=== PATIENT | female | born 1985 | race Hispanic/Latino ===

== ENCOUNTER 2017-06-22 19:19 | Emergency (ER) | payer BC, MEDICAID ==
[2017-06-22] MEDS ORDERED: TYLENOL PO ONE (19:54)
[2017-06-22 20:29] LABS: Basophils % (Auto) 1.8 % (0.0-1.8); Eosinophils % (Auto) 4.2 % (0.0-4.3); Hematocrit 32.9 % (30.3-42.9); Hemoglobin 10.1 gm/dl (10.1-14.3); Mean Corpuscular HGB Conc 31 % (30-34); Mean Corpuscular Volume 76 fl (79-97); Platelet Count 324 K/mm3 (140-440); Red Blood Count 4.35 M/mm3 (3.65-5.03); Red Cell Distribution Width 15.9 % (13.2-15.2); White Blood Count 7.7 K/mm3 (4.5-11.0)
[2017-06-22 20:31] LABS: Mean Corpuscular Hemoglobin 23 pg (28-32)
[2017-06-22 21:42] LABS: Bilirubin,Urine NEG (Negative); Blood,Urine LG (Negative); Ketones,Urine NEG (Negative); Leukocyte Esterase,Urine NEG (Negative); Mucus,Urine FEW /HPF; Nitrite,Urine NEG (Negative); Urobilinogen,Urine < 2.0 mg/dL (<2.0)
[2017-06-22 21:43] LABS: RBC,Urine > 182.0 /HPF (0.0-6.0)
[2017-06-23] MEDS ORDERED: NORCO 5/325 PO ONE (00:57)
[2017-06-23] MEDS ORDERED: TORADOL IM ONE (00:58)
[2017-06-23 01:05] VITALS: BP 145/87
--- NOTE | 2017-06-23 01:28 | Emergency Department Report ---
ED Female HPI - General Chief complaint: Vaginal Bleeding Stated complaint: VAG BLEED, AB PAIN, NAUSEA Time Seen by Provider: 06/23/17 00:49 Source: patient Mode of arrival: Ambulatory Limitations: No Limitations - History of Present Illness Initial comments: 31-year-old female with past medical history of kidney stones, , and previous bladder and kidney surgery presents as complaining of heavy vaginal bleeding today. Patient states her previous menses started on June 05 and last about 3 days. She states her menstrual cycles typically regular and occurs at the end of the month. Today patient complained of crampy suprapubic pain that is intermittent and moderate in intensity. Pain is worse with palpation. She has used 12 pads today. No complaints of nausea, vomiting, shortness of breath or near syncope. She called her [facility] Dr. Rodney Stearns was advised to come to the ED for evaluation. - Related Data Previous Rx's Medication Instructions Recorded Last Taken Type Clotrimazole 1% [Lotrimin 1%] 1 applic TP BID #1 tube 05/24/14 Unknown Rx Ondansetron [Zofran Odt] 4 mg PO TID #14 tab.rapdis 05/24/14 Unknown Rx HYDROcodone/ACETAMINOPHEN [Vicodin 1 tab PO Q6HR PRN #20 tablet 11/27/14 Unknown Rx HP 10-300 mg] Ondansetron [Zofran Odt] 4 mg PO Q6H PRN #20 tab.rapdis 11/27/14 Unknown Rx Sulfamethoxazole/Trimethoprim 1 each PO BID #14 tablet 11/27/14 Unknown Rx [Bactrim Ds] HYDROcodone/APAP 5-325 [[place] 1 each PO Q6HR PRN #20 tablet 06/23/17 Unknown Rx 5-325 mg TAB] Ibuprofen [Motrin] 800 mg PO Q8HR PRN #30 tablet 06/23/17 Unknown Rx medroxyPROGESTERone ACETATE 10 mg PO QDAY #5 tablet 06/23/17 Unknown Rx [Provera] Allergies Allergy/AdvReac Type Severity Reaction Status Date / Time amoxicillin [Amoxicillin] Allergy Vomiting Verified 05/24/14 12:00 ED Review of Systems ROS: Stated complaint: VAG BLEED, AB PAIN, NAUSEA Other details as noted in HPI Comment: All other systems reviewed and negative Other: Constitutional: No fevers chills Eyes: No eye pain visual changes ENT: No ear pain or throat pain Neck: Denies pain Respiratory: Denies cough wheezing shortness of breath Cardiovascular: Denies chest pain, palpitations, syncope GI: Denies a nausea, vomiting, diarrhea : Denies dysuria Musculoskeletal: Denies back pain Skin: Denies rash, lesions, erythema Neurologic: Denies headache, numbness, weakness Psychiatric: Denies suicidal ideation, hallucinations ED Past Medical Hx - Past Medical History Previous Medical History?: No Hx Kidney Stones: Yes - Surgical History Past Surgical History?: Yes Additional Surgical History: c section x1 kidney surgery bladder surgery - Social History Smoking Status: Never Smoker Substance Use Type: None - Medications Home Medications: Home Medications Medication Instructions Recorded Confirmed Last Taken Type Clotrimazole 1% [Lotrimin 1%] 1 applic TP BID #1 tube 05/24/14 Unknown Rx Ondansetron [Zofran Odt] 4 mg PO TID #14 tab.rapdis 05/24/14 Unknown Rx HYDROcodone/ACETAMINOPHEN [Vicodin 1 tab PO Q6HR PRN #20 tablet 11/27/14 Unknown Rx HP 10-300 mg] Ondansetron [Zofran Odt] 4 mg PO Q6H PRN #20 tab.rapdis 11/27/14 Unknown Rx Sulfamethoxazole/Trimethoprim 1 each PO BID #14 tablet 11/27/14 Unknown Rx [Bactrim Ds] HYDROcodone/APAP 5-325 [[place] 1 each PO Q6HR PRN #20 tablet 06/23/17 Unknown Rx 5-325 mg TAB] Ibuprofen [Motrin] 800 mg PO Q8HR PRN #30 tablet 06/23/17 Unknown Rx medroxyPROGESTERone ACETATE 10 mg PO QDAY #5 tablet 06/23/17 Unknown Rx [Provera] ED Physical Exam - General Limitations: No Limitations - Other Other exam information: General: No limitations, patient is alert in no acute distress Head exam: Atraumatic, normocephalic Eyes exam: Normal appearance ENT: Moist mucous membrane, normal oropharynx Neck exam: Normal inspection, full range of motion, no meningismus nontender Respiratory exam: Clear to auscultation bilateral, no wheezes, rales, crackles Cardiovascular: Normal rate and rhythm, normal heart sounds Abdomen: Soft, nondistended, suprapubic tendon, with normal bowel sounds, no rebound, or guarding Extremity: Full range of motion normal inspection no deformity Back: Normal Inspection, full range of motion, no tenderness Neurologic: Alert, oriented x3, cranial nerves intact, no motor or sensory deficit Psychiatric: normal affect, normal mood Skin: Warm, dry, intact ED Course Vital Signs 06/22/17 06/23/17 19:47 01:04 Temperature 98.1 F 98 F Pulse Rate 93 H 61 Respiratory 18 16 Rate Blood Pressure 189/111 Blood Pressure 145/87 [Left] O2 Sat by Pulse 99 100 Oximetry - Reevaluation(s) Reevaluation #1: 06/23/17 01:27 Toradol and [place] given for pain. Patient received Tylenol 1 g prior to my evaluation without relief. Repeat blood pressure improved without receiving any antihypertensive medication - Consultations Consultation #1: 06/23/17 02:[address] Stearns. Recommends Provera and outpatient follow-up ED Medical Decision Making - Lab Data Result diagrams: 06/22/17 20:00 Lab Results 06/22/17 06/22/17 06/22/17 Range/Units 20:00 20:00 20:00 WBC 7.7 (4.5-11.0) K/mm3 RBC 4.35 (3.65-5.03) M/mm3 Hgb 10.1 (10.1-14.3) gm/dl Hct 32.9 (30.3-42.9) % MCV 76 L (79-97) fl MCH 23 L (28-32) pg MCHC 31 (30-34) % RDW 15.9 H (13.2-15.2) % Plt Count 324 (140-440) K/mm3 Lymph % (Auto) 24.4 (13.4-35.0) % [place] % (Auto) 6.0 (0.0-7.3) % Eos % (Auto) 4.2 (0.0-4.3) % Baso % (Auto) 1.8 (0.0-1.8) % Lymph # 1.9 (1.2-5.4) K/mm3 [place] # 0.5 (0.0-0.8) K/mm3 Eos # 0.3 (0.0-0.4) K/mm3 Baso # 0.1 (0.0-0.1) K/mm3 Seg Neutrophils % 63.6 (40.0-70.0) % Seg Neutrophils # 4.9 (1.8-7.7) K/mm3 HCG, Quant < 2 (0-4) mIU/mL Urine Color (Yellow) Urine Turbidity (Clear) Urine pH (5.0-7.0) Ur Specific [place] (1.003-1.030) Urine Protein (Negative) mg/dL Urine Glucose (UA) (Negative) mg/dL Urine Ketones (Negative) mg/dL Urine Blood (Negative) Urine Nitrite (Negative) Urine Bilirubin (Negative) Urine Urobilinogen (<2.0) mg/dL Ur Leukocyte Esterase (Negative) Urine WBC (Auto) (0.0-6.0) /HPF Urine RBC (Auto) (0.0-6.0) /HPF U Epithel Cells (Auto) (0-13.0) /HPF Urine Mucus /HPF Blood Type O POSITIVE Antibody Screen Negative 06/22/17 Range/Units 21:00 WBC (4.5-11.0) K/mm3 RBC (3.65-5.03) M/mm3 Hgb (10.1-14.3) gm/dl Hct (30.3-42.9) % MCV (79-97) fl MCH (28-32) pg MCHC (30-34) % RDW (13.2-15.2) % Plt Count (140-440) K/mm3 Lymph % (Auto) (13.4-35.0) % [place] % (Auto) (0.0-7.3) % Eos % (Auto) (0.0-4.3) % Baso % (Auto) (0.0-1.8) % Lymph # (1.2-5.4) K/mm3 [place] # (0.0-0.8) K/mm3 Eos # (0.0-0.4) K/mm3 Baso # (0.0-0.1) K/mm3 Seg Neutrophils % (40.0-70.0) % Seg Neutrophils # (1.8-7.7) K/mm3 HCG, Quant (0-4) mIU/mL Urine Color Yellow (Yellow) Urine Turbidity Slightly-cloudy (Clear) Urine pH 5.0 (5.0-7.0) Ur Specific [place] 1.026 (1.003-1.030) Urine Protein 30 mg/dl (Negative) mg/dL Urine Glucose (UA) Neg (Negative) mg/dL Urine Ketones Neg (Negative) mg/dL Urine Blood Lg (Negative) Urine Nitrite Neg (Negative) Urine Bilirubin Neg (Negative) Urine Urobilinogen < 2.0 (<2.0) mg/dL Ur Leukocyte Esterase Neg (Negative) Urine WBC (Auto) 5.0 (0.0-6.0) /HPF Urine RBC (Auto) > 182.0 (0.0-6.0) /HPF U Epithel Cells (Auto) 2.0 (0-13.0) /HPF Urine Mucus Few /HPF Blood Type Antibody Screen - Radiology Data Radiology results: report reviewed Transvaginal/pelvic ultrasound: Normal size uterus. There is a fibroid in the anterior uterine myometrium measuring 2.1 cm. - Medical Decision Making Plan discharge patient home on pain medication, Provera, and outpatient follow- up with [facility]. No signs of anemia, hypotension, or at this time. - Differential Diagnosis , miscarriage, fibroids, DUB, anemia Critical Care Time: No Critical care attestation.: If time is entered above; I have spent that time in minutes in the direct care of this critically ill patient, excluding procedure time. ED Disposition Clinical Impression: Elevated blood pressure reading, Uterine fibroid, Menometrorrhagia Disposition: TO HOME OR SELFCARE Is pt being admited?: No Does the pt Need Aspirin: No Condition: Stable Instructions: Menorrhagia (ED), How to Take a Blood Pressure (ED), Uterine Fibroids (ED) Additional Instructions: Take the medication as prescribed. Return if symptoms worsen. Follow-up with your [facility] doctor. Prescriptions: HYDROcodone/APAP 5-325 [[place] 5-325 mg TAB] 1 each PO Q6HR PRN #20 tablet PRN Reason: Pain Ibuprofen [Motrin] 800 mg PO Q8HR PRN #30 tablet PRN Reason: Pain medroxyPROGESTERone ACETATE [Provera] 10 mg PO QDAY #5 tablet Referrals: RODNEY STEARNS MD [Staff Physician] - 3-5 Days RONALDO PINEDA MD [Staff Physician] - 3-5 Days (Primary care doctor) Time of Disposition: 02:42
--- NOTE | 2017-06-23 02:22 | Ultrasound Report ---
FINAL REPORT PROCEDURE: Pelvic ultrasound, transabdominal and transvaginal TECHNIQUE: Real-time transabdominal sonography in multiple planes of the pelvis was performed. The pelvic structures, especially the ovaries were not optimally visualized. Transvaginal sonography was then performed to better evaluate the structures and/or abnormalities described below with image documentation. CPT 47810 and 56901 HISTORY: vag bleeding COMPARISON: No prior studies are available for comparison. FINDINGS: UTERUS Size: 8.9 x 4.7 x 6.8 cm. Endometrial thickness: 9 mm. Orientation: anteverted. Cervix: Normal. Fibroids/masses: There is a 2.1 centimeter fibroid in the anterior uterine myometrium The ovaries are not visualized on this study. Pelvic fluid: None. Other: None. IMPRESSION: Normal sized uterus. There is a fibroid identified in the anterior uterine myometrium, this measures 2.1 centimeters. Neither ovary is identified on this study. No fluid in the lower pelvis.
--- NOTE | 2017-06-23 02:23 | Ultrasound Report ---
FINAL REPORT PROCEDURE: Pelvic ultrasound, transabdominal and transvaginal TECHNIQUE: Real-time transabdominal sonography in multiple planes of the pelvis was performed. The pelvic structures, especially the ovaries were not optimally visualized. Transvaginal sonography was then performed to better evaluate the structures and/or abnormalities described below with image documentation. CPT 56994 and 97769 HISTORY: vag bleeding COMPARISON: No prior studies are available for comparison. FINDINGS: UTERUS Size: 8.9 x 4.7 x 6.8 cm. Endometrial thickness: 9 mm. Orientation: anteverted. Cervix: Normal. Fibroids/masses: There is a 2.1 centimeter fibroid in the anterior uterine myometrium The ovaries are not visualized on this study. Pelvic fluid: None. Other: None. IMPRESSION: Normal sized uterus. There is a fibroid identified in the anterior uterine myometrium, this measures 2.1 centimeters. Neither ovary is identified on this study. No fluid in the lower pelvis.
== END 2017-06-23 03:00 | disposition home or self-care (01) ==
LOC: ED 19:19
DX: D25.9 Leiomyoma of uterus, unspecified (principal); N92.1 Excessive and frequent menstruation with irregular cycle; R03.0 Elevated blood-pressure reading, without diagnosis of hypertension; Z88.1 Allergy status to other antibiotic agents
CPT/HCPCS: 36415; 76830; 76856; 81001; 84702; 85025; 86850; 86900; 86901; 96372; 99284; J1885

== ENCOUNTER 2018-05-06 13:29 | Outpatient (CLI) | payer OTHER ==
--- NOTE | 2018-05-07 08:37 | Mammography Report ---
BILATERAL DIGITAL DIAGNOSTIC MAMMOGRAM with CAD and RIGHT BREAST ULTRASOUND: 05/06/18 13:45:00 CLINICAL: Right breast pain and lump. COMPARISON:None. FINDINGS: The breasts are mostly fatty with a few bilateral residual retroareolar fibroglandular densities. No mammographic finding at a right upper outer periareolar palpable marker. Several benign oil cysts in the upper right breast. The largest measures 2 cm with adjacent benign calcifications. In addition, a 7 mm slightly irregular circumscribed right upper nodule or lymph node. No architectural distortion or suspicious calcifications . The left breast is negative. Ultrasound of the right breast (including all four quadrants and the retroareolar area) was performed and demonstrated no mass, cyst or shadowing at the upper outer periareolar palpable marker. An oval predominately hyperechoic superficial subareolar mass at 12 o'clock measures 1.2 x 0.5 x 1.2 cm. An anechoic slightly irregular cyst at 12 o'clock 10 cm from the nipple measures 1.5 x 1.0 x 1.0 cm. This appears to correlate with the largest oil cyst on the mammogram. A complex cyst versus solid mass at 10 o'clock 9 cm from nipple measures 5 x 5 x 5 mm. A benign lymph node at 10 o'clock 11 cm from the nipple measures 7 x 6 x 5 mm. It appears to correlate with the circumscribed 7 mm nodule on the mammogram. A superficial benign cyst at 10 o'clock 11 cm from the nipple measures 1.0 x 0.6 x 0.5 cm. A slightly irregular cyst at 11 o'clock 10 cm from the nipple measures 5 x 6 x 6 mm. Ultrasound of the right axilla demonstrates no lymphadenopathy. IMPRESSION: Evidence of benign fat necrosis in the right breast and multiple probably benign findings. No mammographic or ultrasound findings correlate with a right upper outer periareolar lump felt by the patient. BI-RADS CATEGORY: 3 - - Probably Benign RECOMMENDATION: Six month followup right mammogram and right breast ultrasound to reevaluate the complex cysts versus solid nodules and to reevaluate the area of the palpable lump. ACR BI-RADS MAMMOGRAPHIC CODES: 0 = Needs additional imaging evaluation; 1 = Negative; 2 = Benign; 3 = Probably benign; 4 = Suspicious; 5 = Malignant; 6 = Known biopsy-proven malignancy COMMENT: 1. Dense breast tissue, i.e., adenosis, fibrocystic changes, etc., may obscure an underlying neoplasm. 2. Approximately 10% of cancers are not detected with mammography. 3. A negative mammography report should not delay biopsy if a clinically suspicious mass is present. COMMENT: Patient follow-up letters are generated by our [employer] application.
== END 2018-05-06 13:30 | disposition home or self-care (01) ==
LOC: MAMMO 13:29
PROVIDERS: ATTEND Advanced Practice Midwife
DX: N64.1 Fat necrosis of breast (principal); Z88.1 Allergy status to other antibiotic agents
CPT/HCPCS: 77066

== ENCOUNTER 2018-05-07 16:48 | Emergency (ER) | payer OTHER ==
[2018-05-07 17:44] LABS: Amorphous Crystals,Urine 1+; Bilirubin,Urine NEG (Negative); Blood,Urine NEG (Negative); Color,Urine Yellow (Yellow); Mucus,Urine 1+ /HPF; Urobilinogen,Urine < 2.0 mg/dL (<2.0)
[2018-05-07 17:45] LABS: HCG Qualitative,Urine Negative (Negative)
[2018-05-07 18:08] LABS: Hematocrit 35.8 % (30.3-42.9); Hemoglobin 11.6 gm/dl (10.1-14.3); Mean Corpuscular HGB Conc 32 % (30-34); Mean Corpuscular Volume 77 fl (79-97); Platelet Count 267 K/mm3 (140-440); Red Blood Count 4.67 M/mm3 (3.65-5.03); Red Cell Distribution Width 14.9 % (13.2-15.2)
[2018-05-07 18:17] LABS: BUN/Creatinine Ratio 33; Blood Urea Nitrogen 13 mg/dL (7-17); Calcium 8.8 mg/dL (8.4-10.2); Hemolysis Index 1
[2018-05-07 18:20] LABS: Mean Corpuscular Hemoglobin 25 pg (28-32)
[2018-05-07 18:29] LABS: INR 0.91 (0.87-1.13)
[2018-05-07 18:30] LABS: Partial Thromboplastin Time 29.2 Sec. (24.2-36.6)
[2018-05-07 19:01] LABS: Total Cells Counted 100
[2018-05-07 19:02] LABS: Anisocytosis 1+; Hypochromasia 1+; Platelet Estimate Consistent w Auto; Poikilocytosis 1+
--- NOTE | 2018-05-07 19:02 | Ultrasound Report ---
FINAL REPORT PROCEDURE: US PELVIC COMPLETE TECHNIQUE: Real-time transabdominal sonography in multiple planes of pelvis was performed with image documentation. This examination was performed without Doppler. Vascular abnormalities, including ovarian torsion, will not be detectable without Doppler evaluation. CPT 99269 HISTORY: pelvic pain w/iud COMPARISON: Prior study 05/23/2017 FINDINGS: Report for this exam was generating using images from both the transabdominal and the transvaginal pelvic ultrasound both of which were performed today. Today's study is limited due to the patient's body habitus and a large amount of bowel gas. Uterus appears to be visualized in the midline. A uterine fibroid described on the prior study performed 06/23/2017 is not clearly visualized. No uterine masses are identified. On today's study the uterus measures 8.4 x 4.0 x 6.0 centimeter. Echogenic area partially visualized in the endometrial canal suggesting the patient has IUD. This is suboptimally visualized. The endometrial stripe does not appear to be significantly widened. No free fluid is seen in the cul-de-sac. Despite imaging with transabdominal and transvaginal scanning neither ovary was visualized. No abnormal adnexal masses are identified. IMPRESSION: Limited exam as described secondary to the patient's body habitus and a large amount of bowel gas. Subtle increased echogenicity seen in the endometrial canal likely representing the patient's IUD. This is suboptimally visualized. Uterus is otherwise unremarkable. A uterine fibroid described on the prior study was not clearly identified today. Neither ovary is visualized today. No abnormal adnexal masses are seen.
--- NOTE | 2018-05-07 19:04 | Ultrasound Report ---
FINAL REPORT PROCEDURE: US TRANSVAGINAL TECHNIQUE: Real-time transvaginal sonography in multiple planes of the pelvis was performed with image documentation. This examination was performed without Doppler. Vascular abnormalities, including ovarian torsion, will not be detectable without Doppler evaluation. CPT 84018 HISTORY: pelvic pain w/iud COMPARISON: Prior study 06/23/2017 and transabdominal pelvic ultrasound performed earlier today. FINDINGS: Report for this exam was generating using images from both the transabdominal and the transvaginal pelvic ultrasound both of which were performed today. Today's study is limited due to the patient's body habitus and a large amount of bowel gas. Uterus appears to be visualized in the midline. A uterine fibroid described on the prior study performed 06/23/2017 is not clearly visualized. No uterine masses are identified. On today's study the uterus measures 8.4 x 4.0 x 6.0 centimeter. Echogenic area partially visualized in the endometrial canal suggesting the patient has IUD. This is suboptimally visualized. The endometrial stripe does not appear to be significantly widened. No free fluid is seen in the cul-de-sac. Despite imaging with transabdominal and transvaginal scanning neither ovary was visualized. No abnormal adnexal masses are identified. IMPRESSION: Limited exam as described secondary to the patient's body habitus and a large amount of bowel gas. Subtle increased echogenicity seen in the endometrial canal likely representing the patient's IUD. This is suboptimally visualized. Uterus is otherwise unremarkable. A uterine fibroid described on the prior study was not clearly identified today. Neither ovary is visualized today. No abnormal adnexal masses are seen. .
--- NOTE | 2018-05-07 21:43 | Emergency Department Report ---
ED General Adult HPI - General Chief complaint: Abdominal Pain Stated complaint: ABD PAIN Time Seen by Provider: 05/07/18 21:42 Source: patient, RN notes reviewed, old records reviewed Mode of arrival: Ambulatory Limitations: No Limitations - History of Present Illness Initial comments: This is a 32-year-old female who is unknown to this provider. Her executive director of marketing is nurse recycle worker Edilia Morales, at [address] [place] [address] The patient presents to the ER with acute on chronic suprapubic abdominal pain, vaginal bleeding and discomfort. The symptoms have been going on since August. The pain is sharp and crampy. Patient admits to nausea with vomiting 2, denies irritative sinus obstructive urinary symptoms. Admits to cramping and contraction-like pain, which increases with palpation, decreases with rest, decreases with IV pain medication, and does not radiate anywhere. Patient reports her nurse recycle worker is employing the IUD that the patient has as a strategy to help with pain control and symptom control. -: Gradual, week(s), month(s) Location: abdomen, genitals Radiation: non-radiation Severity scale (0 -10): 7 Quality: aching Consistency: intermittent Improves with: medication, rest Worsens with: movement Associated Symptoms: malaise, nausea/vomiting. denies: confusion, chest pain, cough, diaphoresis, fever/chills, headaches, loss of appetite, rash, seizure, shortness of breath, syncope, weakness - Related Data Previous Rx's Medication Instructions Recorded Last Taken Type Clotrimazole 1% [Lotrimin 1%] 1 applic TP BID #1 tube 05/24/14 Unknown Rx Ondansetron [Zofran Odt] 4 mg PO TID #14 tab.rapdis 05/24/14 Unknown Rx HYDROcodone/ACETAMINOPHEN [Vicodin 1 tab PO Q6HR PRN #20 tablet 11/27/14 Unknown Rx HP 10-300 mg] Ondansetron [Zofran Odt] 4 mg PO Q6H PRN #20 tab.rapdis 11/27/14 Unknown Rx Sulfamethoxazole/Trimethoprim 1 each PO BID #14 tablet 11/27/14 Unknown Rx [Bactrim Ds] HYDROcodone/APAP 5-325 [[place] 1 each PO Q6HR PRN #20 tablet 06/23/17 Unknown Rx 5-325 mg TAB] Ibuprofen [Motrin] 800 mg PO Q8HR PRN #30 tablet 06/23/17 Unknown Rx medroxyPROGESTERone ACETATE 10 mg PO QDAY #5 tablet 06/23/17 Unknown Rx [Provera] Ibuprofen [Motrin] 600 mg PO Q8H PRN #30 tablet 05/07/18 Unknown Rx Ketorolac [Toradol] 10 mg PO Q6H PRN #20 tablet 05/07/18 Unknown Rx Ondansetron [Zofran Odt] 4 mg PO Q8HR PRN #20 tab.rapdis 05/08/18 Unknown Rx Allergies Allergy/AdvReac Type Severity Reaction Status Date / Time amoxicillin [Amoxicillin] Allergy Vomiting Verified 05/24/14 12:00 ED Review of Systems ROS: Stated complaint: ABD PAIN Other details as noted in HPI Constitutional: malaise. denies: fever Eyes: denies: eye discharge ENT: denies: epistaxis Respiratory: denies: cough Cardiovascular: denies: chest pain Gastrointestinal: abdominal pain, nausea, vomiting Genitourinary: abnormal menses. denies: dysuria Musculoskeletal: denies: back pain Skin: denies: lesions Neurological: weakness Psychiatric: anxiety ED Past Medical Hx - Past Medical History Hx Hypertension: Yes Hx Kidney Stones: Yes - Surgical History Additional Surgical History: c section x1 kidney surgery bladder surgery - Social History Smoking Status: Current Every Day Smoker Substance Use Type: None - Medications Home Medications: Home Medications Medication Instructions Recorded Confirmed Last Taken Type Clotrimazole 1% [Lotrimin 1%] 1 applic TP BID #1 tube 05/24/14 Unknown Rx Ondansetron [Zofran Odt] 4 mg PO TID #14 tab.rapdis 05/24/14 Unknown Rx HYDROcodone/ACETAMINOPHEN [Vicodin 1 tab PO Q6HR PRN #20 tablet 11/27/14 Unknown Rx HP 10-300 mg] Ondansetron [Zofran Odt] 4 mg PO Q6H PRN #20 tab.rapdis 11/27/14 Unknown Rx Sulfamethoxazole/Trimethoprim 1 each PO BID #14 tablet 11/27/14 Unknown Rx [Bactrim Ds] HYDROcodone/APAP 5-325 [[place] 1 each PO Q6HR PRN #20 tablet 06/23/17 Unknown Rx 5-325 mg TAB] Ibuprofen [Motrin] 800 mg PO Q8HR PRN #30 tablet 06/23/17 Unknown Rx medroxyPROGESTERone ACETATE 10 mg PO QDAY #5 tablet 06/23/17 Unknown Rx [Provera] Ibuprofen [Motrin] 600 mg PO Q8H PRN #30 tablet 05/07/18 Unknown Rx Ketorolac [Toradol] 10 mg PO Q6H PRN #20 tablet 05/07/18 Unknown Rx Ondansetron [Zofran Odt] 4 mg PO Q8HR PRN #20 tab.rapdis 05/08/18 Unknown Rx ED Physical Exam - General Limitations: No Limitations General appearance: alert, in no apparent distress, obese - Head Head exam: Present: atraumatic, normocephalic - Eye Eye exam: Present: normal appearance, EOMI. Absent: nystagmus - ENT ENT exam: Present: normal exam, normal orophraynx, mucous membranes moist, normal external ear exam - Neck Neck exam: Present: normal inspection, full ROM - Respiratory Respiratory exam: Present: normal lung sounds bilaterally. Absent: respiratory distress - Cardiovascular Cardiovascular Exam: Present: regular rate, normal rhythm, normal heart sounds. Absent: bradycardia, tachycardia, irregular rhythm, systolic murmur, diastolic murmur, rubs, gallop - GI/Abdominal GI/Abdominal exam: Present: soft, tenderness, normal bowel sounds, other (there is suprapubic tenderness. There is no rebound, guarding or peritoneal signs.). Absent: distended, guarding, rebound, rigid, pulsatile mass - External exam: Present: normal external exam Speculum exam: Present: normal speculum exam, vaginal bleeding. Absent: cervical discharge Bi-manual exam: Present: normal bi-manual exam, uterine tenderness, other ( escorted by nurse Mabel Fenton). Absent: cervical motion tendernes, adnexal tenderness, adnexal mass, uterine enlargement - Extremities Exam Extremities exam: Present: normal inspection, full ROM, normal capillary refill , other (2+ pulses noted in the bilateral upper, lower extremities. Compartments soft. No long bony tenderness. The pelvis is stable.). Absent: pedal edema, joint swelling, calf tenderness - Back Exam Back exam: Present: normal inspection, full ROM. Absent: tenderness, CVA tenderness (R), paraspinal tenderness, vertebral tenderness - Neurological Exam Neurological exam: Present: alert, oriented X3, CN II-XII intact, normal gait, other (Extraocular movements intact. Tongue midline. No facial droop. Facial sensation intact to light touch in the V1, V2, V3 distribution bilaterally. 5 and 5 strength in 4 extremities.. Sensation is intact to light touch in 4 extremities.). Absent: motor sensory deficit - Psychiatric Psychiatric exam: Present: normal affect, normal mood - Skin Skin exam: Present: warm, dry, intact, normal color. Absent: rash ED Course Vital Signs 05/07/18 05/07/18 05/07/18 17:08 21:21 21:32 Temperature 98.2 F 97.8 F Pulse Rate 83 79 Respiratory 16 14 Rate Blood Pressure 170/106 149/93 O2 Sat by Pulse 96 100 99 Oximetry 05/07/18 05/07/18 05/07/18 21:40 21:50 22:00 Temperature Pulse Rate Respiratory Rate Blood Pressure O2 Sat by Pulse 100 100 100 Oximetry 05/07/18 05/07/18 05/07/18 22:10 22:20 22:34 Temperature 97.8 F Pulse Rate Respiratory Rate Blood Pressure 136/86 O2 Sat by Pulse 99 100 Oximetry ED Medical Decision Making - Lab Data Result diagrams: 05/07/18 17:47 05/07/18 17:47 Vital Signs 05/07/18 05/07/18 17:08 21:21 Temperature 98.2 F 97.8 F Pulse Rate 83 79 Respiratory 16 14 Rate Blood Pressure 170/106 149/93 O2 Sat by Pulse 96 100 Oximetry Lab Results 05/07/18 05/07/18 05/07/18 Range/Units 17:47 17:47 17:47 WBC 8.6 (4.5-11.0) K/mm3 RBC 4.67 (3.65-5.03) M/mm3 Hgb 11.6 (10.1-14.3) gm/dl Hct 35.8 (30.3-42.9) % MCV 77 L (79-97) fl MCH 25 L (28-32) pg MCHC 32 (30-34) % RDW 14.9 (13.2-15.2) % Plt Count 267 (140-440) K/mm3 Baso % (Auto) Relay Man Add Manual Diff Complete Total Counted 100 Seg Neuts % (Manual) 58.0 (40.0-70.0) % Band Neutrophils % 0 % Lymphocytes % (Manual) 24.0 (13.4-35.0) % Reactive Lymphs % (Man) 0 % Monocytes % (Manual) 6.0 (0.0-7.3) % Eosinophils % (Manual) 9.0 H (0.0-4.3) % Basophils % (Manual) 3.0 H (0.0-1.8) % Metamyelocytes % 0 % Myelocytes % 0 % Promyelocytes % 0 % Blast Cells % 0 % Nucleated RBC % Not Reportable Seg Neutrophils # Man 5.0 (1.8-7.7) K/mm3 Band Neutrophils # 0.0 K/mm3 Lymphocytes # (Manual) 2.1 (1.2-5.4) K/mm3 Abs React Lymphs (Man) 0.0 K/mm3 Monocytes # (Manual) 0.5 (0.0-0.8) K/mm3 Eosinophils # (Manual) 0.8 H (0.0-0.4) K/mm3 Basophils # (Manual) 0.3 H (0.0-0.1) K/mm3 Metamyelocytes # 0.0 K/mm3 Myelocytes # 0.0 K/mm3 Promyelocytes # 0.0 K/mm3 Blast Cells # 0.0 K/mm3 WBC Morphology Not Reportable Hypersegmented Neuts Not Reportable Hyposegmented Neuts Not Reportable Hypogranular Neuts Not Reportable Smudge Cells Not Reportable Toxic Granulation Not Reportable Toxic Vacuolation Not Reportable Dohle Bodies Not Reportable Pelger-Huet Anomaly Not Reportable Daniella Rods Not Reportable Platelet Estimate Consistent w auto Clumped Platelets Not Reportable Plt Clumps, EDTA Not Reportable Large Platelets Not Reportable Giant Platelets Not Reportable Platelet Satelliting Not Reportable Plt Morphology Comment Not Reportable RBC Morphology Not Reportable Dimorphic RBCs Not Reportable Polychromasia Not Reportable Hypochromasia 1+ Poikilocytosis 1+ Anisocytosis 1+ Microcytosis Not Reportable Macrocytosis Not Reportable Spherocytes Not Reportable Pappenheimer Bodies Not Reportable Sickle Cells Not Reportable Target Cells Not Reportable Tear Drop Cells Not Reportable Ovalocytes Not Reportable Helmet Cells Not Reportable Becerril-[place] Bodies Not Reportable [place] Rings Not Reportable Yarely Cells Not Reportable Bite Cells Not Reportable Crenated Cell Not Reportable Elliptocytes Not Reportable Acanthocytes (Spur) Not Reportable Rouleaux Not Reportable Hemoglobin C Crystals Not Reportable Schistocytes Not Reportable Malaria parasites Not Reportable Nilesh Bodies Not Reportable Hem Pathologist Commnt No PT (12.2-14.9) Sec. INR (0.87-1.13) APTT (24.2-36.6) Sec. Sodium 139 (137-145) mmol/L Potassium 4.2 (3.6-5.0) mmol/L Chloride 100.8 (98-107) mmol/L Carbon Dioxide 27 (22-30) mmol/L Anion Gap 15 mmol/L BUN 13 (7-17) mg/dL Creatinine 0.4 L (0.7-1.2) mg/dL Estimated GFR > 60 ml/min BUN/Creatinine Ratio 33 % Glucose 81 (65-100) mg/dL Lactic Acid 0.70 (0.7-2.0) mmol/L Calcium 8.8 (8.4-10.2) mg/dL HCG, Quant (0-4) mIU/mL Urine Color (Yellow) Urine Turbidity (Clear) Urine pH (5.0-7.0) Ur Specific [place] (1.003-1.030) Urine Protein (Negative) mg/dL Urine Glucose (UA) (Negative) mg/dL Urine Ketones (Negative) mg/dL Urine Blood (Negative) Urine Nitrite (Negative) Urine Bilirubin (Negative) Urine Urobilinogen (<2.0) mg/dL Ur Leukocyte Esterase (Negative) Urine WBC (Auto) (0.0-6.0) /HPF Urine RBC (Auto) (0.0-6.0) /HPF U Epithel Cells (Auto) (0-13.0) /HPF Amorphous Crystals Urine Mucus /HPF Urine HCG, Qual (Negative) Blood Type Antibody Screen 05/07/18 05/07/18 05/07/18 Range/Units 17:47 17:47 17:47 WBC (4.5-11.0) K/mm3 RBC (3.65-5.03) M/mm3 Hgb (10.1-14.3) gm/dl Hct (30.3-42.9) % MCV (79-97) fl MCH (28-32) pg MCHC (30-34) % RDW (13.2-15.2) % Plt Count (140-440) K/mm3 Baso % (Auto) Add Manual Diff Total Counted Seg Neuts % (Manual) (40.0-70.0) % Band Neutrophils % % Lymphocytes % (Manual) (13.4-35.0) % Reactive Lymphs % (Man) % Monocytes % (Manual) (0.0-7.3) % Eosinophils % (Manual) (0.0-4.3) % Basophils % (Manual) (0.0-1.8) % Metamyelocytes % % Myelocytes % % Promyelocytes % % Blast Cells % % Nucleated RBC % Seg Neutrophils # Man (1.8-7.7) K/mm3 Band Neutrophils # K/mm3 Lymphocytes # (Manual) (1.2-5.4) K/mm3 Abs React Lymphs (Man) K/mm3 Monocytes # (Manual) (0.0-0.8) K/mm3 Eosinophils # (Manual) (0.0-0.4) K/mm3 Basophils # (Manual) (0.0-0.1) K/mm3 Metamyelocytes # K/mm3 Myelocytes # K/mm3 Promyelocytes # K/mm3 Blast Cells # K/mm3 WBC Morphology Hypersegmented Neuts Hyposegmented Neuts Hypogranular Neuts Smudge Cells Toxic Granulation Toxic Vacuolation Dohle Bodies Pelger-Huet Anomaly Daniella Rods Platelet Estimate Clumped Platelets Plt Clumps, EDTA Large Platelets Giant Platelets Platelet Satelliting Plt Morphology Comment RBC Morphology Dimorphic RBCs Polychromasia Hypochromasia Poikilocytosis Anisocytosis Microcytosis Macrocytosis Spherocytes Pappenheimer Bodies Sickle Cells Target Cells Tear Drop Cells Ovalocytes Helmet Cells Becerril-[place] Bodies [place] Rings [place] Cells Bite Cells Crenated Cell Elliptocytes Acanthocytes (Spur) Rouleaux Hemoglobin C Crystals Schistocytes Malaria parasites Nilesh Bodies Hem Pathologist Commnt PT 12.7 (12.2-14.9) Sec. INR 0.91 (0.87-1.13) APTT 29.2 (24.2-36.6) Sec. Sodium (137-145) mmol/L Potassium (3.6-5.0) mmol/L Chloride (98-107) mmol/L Carbon Dioxide (22-30) mmol/L Anion Gap mmol/L BUN (7-17) mg/dL Creatinine (0.7-1.2) mg/dL Estimated GFR ml/min BUN/Creatinine Ratio % Glucose (65-100) mg/dL Lactic Acid (0.7-2.0) mmol/L Calcium (8.4-10.2) mg/dL HCG, Quant < 2 (0-4) mIU/mL Urine Color (Yellow) Urine Turbidity (Clear) Urine pH (5.0-7.0) Ur Specific [place] (1.003-1.030) Urine Protein (Negative) mg/dL Urine Glucose (UA) (Negative) mg/dL Urine Ketones (Negative) mg/dL Urine Blood (Negative) Urine Nitrite (Negative) Urine Bilirubin (Negative) Urine Urobilinogen (<2.0) mg/dL Ur Leukocyte Esterase (Negative) Urine WBC (Auto) (0.0-6.0) /HPF Urine RBC (Auto) (0.0-6.0) /HPF U Epithel Cells (Auto) (0-13.0) /HPF Amorphous Crystals Urine Mucus /HPF Urine HCG, Qual (Negative) Blood Type O POSITIVE Antibody Screen Negative 05/07/18 Range/Units Unknown WBC (4.5-11.0) K/mm3 RBC (3.65-5.03) M/mm3 Hgb (10.1-14.3) gm/dl Hct (30.3-42.9) % MCV (79-97) fl MCH (28-32) pg MCHC (30-34) % RDW (13.2-15.2) % Plt Count (140-440) K/mm3 Baso % (Auto) Add Manual Diff Total Counted Seg Neuts % (Manual) (40.0-70.0) % Band Neutrophils % % Lymphocytes % (Manual) (13.4-35.0) % Reactive Lymphs % (Man) % Monocytes % (Manual) (0.0-7.3) % Eosinophils % (Manual) (0.0-4.3) % Basophils % (Manual) (0.0-1.8) % Metamyelocytes % % Myelocytes % % Promyelocytes % % Blast Cells % % Nucleated RBC % Seg Neutrophils # Man (1.8-7.7) K/mm3 Band Neutrophils # K/mm3 Lymphocytes # (Manual) (1.2-5.4) K/mm3 Abs React Lymphs (Man) K/mm3 Monocytes # (Manual) (0.0-0.8) K/mm3 Eosinophils # (Manual) (0.0-0.4) K/mm3 Basophils # (Manual) (0.0-0.1) K/mm3 Metamyelocytes # K/mm3 Myelocytes # K/mm3 Promyelocytes # K/mm3 Blast Cells # K/mm3 WBC Morphology Hypersegmented Neuts Hyposegmented Neuts Hypogranular Neuts Smudge Cells Toxic Granulation Toxic Vacuolation Dohle Bodies Pelger-Huet Anomaly Daniella Rods Platelet Estimate Clumped Platelets Plt Clumps, EDTA Large Platelets Giant Platelets Platelet Satelliting Plt Morphology Comment RBC Morphology Dimorphic RBCs Polychromasia Hypochromasia Poikilocytosis Anisocytosis Microcytosis Macrocytosis Spherocytes Pappenheimer Bodies Sickle Cells Target Cells Tear Drop Cells Ovalocytes Helmet Cells Becerril-[place] Bodies [place] Rings Yarely Cells Bite Cells Crenated Cell Elliptocytes Acanthocytes (Spur) Rouleaux Hemoglobin C Crystals Schistocytes Malaria parasites Nilesh Bodies Hem Pathologist Commnt PT (12.2-14.9) Sec. INR (0.87-1.13) APTT (24.2-36.6) Sec. Sodium (137-145) mmol/L Potassium (3.6-5.0) mmol/L Chloride (98-107) mmol/L Carbon Dioxide (22-30) mmol/L Anion Gap mmol/L BUN (7-17) mg/dL Creatinine (0.7-1.2) mg/dL Estimated GFR ml/min BUN/Creatinine Ratio % Glucose (65-100) mg/dL Lactic Acid (0.7-2.0) mmol/L Calcium (8.4-10.2) mg/dL HCG, Quant (0-4) mIU/mL Urine Color Yellow (Yellow) Urine Turbidity Clear (Clear) Urine pH 7.0 (5.0-7.0) Ur Specific [place] 1.024 (1.003-1.030) Urine Protein 30 mg/dl (Negative) mg/dL Urine Glucose (UA) Neg (Negative) mg/dL Urine Ketones Neg (Negative) mg/dL Urine Blood Neg (Negative) Urine Nitrite Neg (Negative) Urine Bilirubin Neg (Negative) Urine Urobilinogen < 2.0 (<2.0) mg/dL Ur Leukocyte Esterase Tr (Negative) Urine WBC (Auto) 3.0 (0.0-6.0) /HPF Urine RBC (Auto) 11.0 (0.0-6.0) /HPF U Epithel Cells (Auto) 8.0 (0-13.0) /HPF Amorphous Crystals 1+ Urine Mucus 1+ /HPF Urine HCG, Qual Negative (Negative) Blood Type Antibody Screen - Radiology Data Radiology results: report reviewed Print Report Referring Physician: ELVIN SEXTON Patient Name: DAYNA MENA Date of : 1985 Sex: Female Report Date: 2018-05-07 Report Status: [place] [address] Ultrasound Report Signed Patient: DAYNA MENA MR#: [id number] : 1985 Acct:[id number] Age/Sex: 32 / F ADM Date: 05/07/18 Loc: ED Attending Dr: Ordering Physician: JALEN BURTON Date of Service: 05/07/18 Procedure(s): US transvaginal Accession Number(s): [id number] cc: JALEN BURTON FINAL REPORT PROCEDURE: US TRANSVAGINAL TECHNIQUE: Real-time transvaginal sonography in multiple planes of the pelvis was performed with image documentation. This examination was performed without Doppler. Vascular abnormalities, including ovarian torsion, will not be detectable without Doppler evaluation. CPT 97198 HISTORY: pelvic pain w/iud COMPARISON: Prior study 06/23/2017 and transabdominal pelvic ultrasound performed earlier today. FINDINGS: Report for this exam was generating using images from both the transabdominal and the transvaginal pelvic ultrasound both of which were performed today. Today's study is limited due to the patient's body habitus and a large amount of bowel gas. Uterus appears to be visualized in the midline. A uterine fibroid described on the prior study performed 06/23/2017 is not clearly visualized. No uterine masses are identified. On today's study the uterus measures 8.4 x 4.0 x 6.0 centimeter. Echogenic area partially visualized in the endometrial canal suggesting the patient has IUD. This is suboptimally visualized. The endometrial stripe does not appear to be significantly widened. No free fluid is seen in the cul-de-sac. Despite imaging with transabdominal and transvaginal scanning neither ovary was visualized. No abnormal adnexal masses are identified. IMPRESSION: Limited exam as described secondary to the patient's body habitus and a large amount of bowel gas. Subtle increased echogenicity seen in the endometrial canal likely representing the patient's IUD. This is suboptimally visualized. Uterus is otherwise unremarkable. A uterine fibroid described on the prior study was not clearly identified today. Neither ovary is visualized today. No abnormal adnexal masses are seen. . Transcribed By: SHABBIR Dictated By: BARAK CUTLER MD Electronically Authenticated By: BARAK CUTLER MD Signed Date/Time: 05/07/181899 - Medical Decision Making Differential diagnosis, including but not limited to: Dysfunctional uterine bleeding, uterine fibroids, acute on chronic pelvic pain, endometriosis Assessment and plan: 32-year-old female with acute on chronic pelvic pain. She is afebrile with reassuring vital signs. Has mild suprapubic tenderness without right lower quadrant tenderness, rebound or guarding. Based on the history and physical I doubt pelvic inflammatory disease. Her laboratory studies were unremarkable, and her gynecologic ultrasound in conjunction with her physical exam did not demonstrate any emergent condition that would require emergent surgical intervention at this time. As a courtesy we attempted to contact the patient's nurse recycle worker, Edilia Morales but we will unable to get in touch with her. However, based on the objective information at this time, there does not appear to be an emergent gynecologic condition at this time that requires emergent consultation, the patient is medically suitable to follow-up with an outpatient. Patient will be managed expectantly with supportive care and appropriate medications. Critical care attestation.: If time is entered above; I have spent that time in minutes in the direct care of this critically ill patient, excluding procedure time. ED Disposition Clinical Impression: Lower abdominal pain Disposition: DC-01 TO HOME OR SELFCARE Is pt being admited?: No Does the pt Need Aspirin: No Condition: Stable Instructions: Dysmenorrhea (ED) Additional Instructions: Cultures were sent today and results will be available in the next 3-5 days. Have your private executive director of marketing or primary care doctor contact the medical records department to obtain culture results. Follow-up with your [facility] physician, or any of the listed [facility] physicians within the next 7-10 days. If taking the Toradol for pain, do not combine with Motrin, ibuprofen, Naprosyn , Aleve. Return to the ER right away with new pain, worsened pain, migration of pain, fevers, chills, lethargy, irritability, projectile vomiting, change in mental status, confusion, inability to tolerate liquid feeds. Edilia Mota CNM [address] [place] [address] Referrals: DOUG MUHAMMAD MD [Primary Care Provider] - 3-5 Days EDILIA MOTA CNM [Advanced Practice Nurse] - 3-5 Days [facility] [Provider Group] - 3-5 Days [facility] [Provider Group] - 3-5 Days [facility] [Provider Group] - 3-5 Days
[2018-05-07] MEDS ORDERED: SUBLIMAZE IV ONE (21:50)
[2018-05-07] MEDS ORDERED: TORADOL IV ONE (21:50)
[2018-05-07 22:35] VITALS: BP 136/86
== END 2018-05-08 00:32 | disposition home or self-care (01) ==
LOC: ED 16:48
DX: R10.30 Lower abdominal pain, unspecified (principal); N93.9 Abnormal uterine and vaginal bleeding, unspecified; R11.2 Nausea with vomiting, unspecified; I10 Essential (primary) hypertension; F17.200 Nicotine dependence, unspecified, uncomplicated; Z87.442 Personal history of urinary calculi; Z88.1 Allergy status to other antibiotic agents
CPT/HCPCS: 36415; 76830; 76856; 80048; 81001; 81025; 82140; 84702; 85007; 85025; 85610; 85730; 86850; 86900; 86901; 87210; 96374; 96375; 99284; J1885; J3010

== ENCOUNTER 2019-03-11 08:06 | Day surgery (SDC) | payer SELFPAY ==
[2019-03-11] MEDS ORDERED: SUBLIMAZE ONE (08:50)
[2019-03-11] MEDS ORDERED: DECADRON ONE (08:50)
[2019-03-11] MEDS ORDERED: ZEMURON IV ONE (08:50)
[2019-03-11] MEDS ORDERED: XYLOCAINE MPF 2% ONE (08:50)
[2019-03-11] MEDS ORDERED: DIPRIVAN 10 MG/ML IV ONE (08:50)
[2019-03-11] MEDS ORDERED: TORADOL ONE (08:50)
[2019-03-11] MEDS ORDERED: ZOFRAN ONE ×2 (08:50→12:26)
--- NOTE | 2019-03-11 09:12 | Anesthesia Consultation ---
Anesthesia Consult and Med Hx Date of service: 03/11/19 - Airway Anesthetic Teeth Evaluation: Good ROM Head & Neck: Adequate Mental/Hyoid Distance: Adequate Mallampati Class: Class II Intubation Access Assessment: Probably Good - Pulmonary Exam CTA: Yes - Cardiac Exam Cardiac Exam: RRR - Pre-Operative Health Status ASA Pre-Surgery Classification: ASA3 Proposed Anesthetic Plan: General - Pulmonary Hx Smoking: Yes (former) Hx Respiratory Symptoms: No - Cardiovascular System Hx Hypertension: Yes Hx Heart Attack/AMI: No Hx Percutaneous Transluminal Coronary Angioplasty (PTCA): No Hx Cardia Arrhythmia: No - Central Nervous System Hx Seizures: No CVA: No - Gastrointestinal Hx Gastroesophageal Reflux Disease: No - Endocrine Hx Renal Disease: No Hx Liver Disease: No Hx Insulin Dependent Diabetes: No Hx Non-Insulin Dependent Diabetes: No Hx Thyroid Disease: No - Hematic Hx Anemia: Yes (mild, per patient) - Other Systems Hx Obesity: Yes (BMI 50) - Additional Comments Anesthesia Medical History Comments: Hx PONV.
--- NOTE | 2019-03-11 09:12 | Anesthesia Day of Surgery ---
Anesthesia Day of Surgery - Day of Surgery Patient Examined: Yes Patient H&P Reviewed: Yes Patient is NPO: Yes
--- NOTE | 2019-03-11 09:57 | Short Stay Summary ---
Short Stay Documentation Date of service: 03/11/19 Narrative H&P: Pt is a 33yo WF LMP 2 years ago presents for surgical evaluation of pelvic pain thought to be caused by a right ovarian cyst. Pelvic u/s showed a septated right ovarian cyst 3.5 x 2.5cm and CA125- WNL. She now presents for a Laproscopic Right ovarian cystectomy. - History Principal diagnosis: Pelvic pain H&P: obtained from office Past Medical History: No medical history Past Surgical History: , Other (kidney stone; bladder cyst) Social history: no significant social history, single, smoking - Allergies and Medications Current Medications: Allergies amoxicillin [Amoxicillin] Allergy (Verified 03/05/19 12:50) Vomiting Home Medications Medication Instructions Recorded Confirmed Last Taken Type Lansoprazole [Prevacid] 15 mg PO QDAY 03/05/19 03/05/19 Unknown History Active Medications Celecoxib (Celebrex) 200 mg PO PREOP NR Stop: 03/11/19 20:00 Last Admin: 03/11/19 09:33 Dose: 200 mg Documented by: Gabapentin (Neurontin) 300 mg PO PREOP NR Stop: 03/11/19 20:00 Last Admin: 03/11/19 09:33 Dose: 300 mg Documented by: Lactated Ringer's (Lactated Ringers) 1,000 mls @ 100 mls/hr IV DIRECT AYANNA Last Admin: 03/11/19 09:20 Dose: 100 mls/hr Documented by: Midazolam HCl (Versed) 2 mg IV PREOP NR Stop: 03/11/19 23:59 Last Admin: 03/11/19 09:32 Dose: 2 mg Documented by: Scopolamine (Transderm-Scop) 1 each TD PREOP NR Stop: 03/11/19 20:00 Last Admin: 03/11/19 09:32 Dose: 1 each Documented by: - Physical exam General appearance: mild distress Integumentary: no rash HEENT: Atraumatic Lungs: Clear to auscultation Breasts: deferred Heart: Regular rate Gastrointestinal: normal Female Genitourinary: deferred Rectal Exam: deferred Extremities: no ischemia, No edema Neurological: Normal gait, Normal speech - Brief post op/procedure progress note Date of procedure: 03/11/19 Pre-op diagnosis: 1. Pelvic pain 2. Right ovarian cyst Post-op diagnosis: same Procedure: Laparoscopic right ovarian cystectomy Anesthesia: GETA Findings: A normal uterus and normal cervix with visible IUD strings. Normal tubes bilaterally. Normal left ovary. Cystic right ovary. Surgeon: ARIANA BROWER Estimated blood loss: minimal Pathology: list (right ovarian cyst) Specimen disposition: to lab Condition: stable - Hospital course Hospital course: Unremarkable. - Disposition Condition at discharge: Good Disposition: DC- TO HOME OR SELFCARE - Discharge Diagnoses (1) Pelvic pain Status: Resolved (2) Right ovarian cyst Status: Resolved Short Stay Discharge Plan Activity: no restrictions Diet: regular Wound: open to air, keep clean and dry Follow up with: DOUG MUHAMMAD MD [Primary Care Provider] - 7 Days ARIANA BROWER MD [Staff Physician] - 10 Days Prescriptions: HYDROcodone/APAP 5-325 [Stewart 5/325] 1 each PO Q6HR PRN #15 tablet PRN Reason: Pain
[2019-03-11] MEDS ORDERED: CLEOCIN 900 MG/50 mL 900 MG/50 ML BAG IV ONE (10:00)
[2019-03-11] MEDS ORDERED: GENTAMICIN 80 MG in NACL 0.9% 100 ML IV ONE (10:00)
[2019-03-11] MEDS ORDERED: NEURONTIN PO NR (10:00)
[2019-03-11] MEDS ORDERED: VERSED IV NR (10:00)
[2019-03-11] MEDS ORDERED: TRANSDERM-SCOP TD NR (10:00)
[2019-03-11] MEDS ORDERED: LACTATED RINGERS 1,000 ML IV SCH (10:00)
[2019-03-11] MEDS ORDERED: MARCAINE 0.5% INFILTRATI ONE ×2 (10:13→11:07)
[2019-03-11] MEDS ORDERED: GENTAMICIN/NS 80 MG/100 ML 100 ML IV NR (10:30)
[2019-03-11 11:04] LABS: Hematocrit 27.4 % (30.3-42.9); Hemoglobin 8.4 gm/dl (10.1-14.3)
[2019-03-11] MEDS ORDERED: NACL 0.9% IR ONE ×2 (11:07→12:00)
--- NOTE | 2019-03-11 12:31 | Operative Report ---
Operative Report Operative Report: Date of procedure: 03/11/2019 Pre-operative diagnosis: 1. Pelvic pain 2. Right ovarian cyst Post-operative diagnosis: Same Procedure name(s): Laparoscopic right ovarian cystectomy Surgeon: Rodney Staerns MD Production Dispatcher: None Anesthesia: Gen. endotracheal intubation by Dr. Thompson EBL: Minimal less than 10 mls Findings: A normal uterus and normal cervix with visible IUD strings. Normal tubes bilaterally. Normal left ovary. Cystic right ovary. Procedure: After the patient was correctly identified, she was prepped and draped in usual sterile fashion and placed in dorsolithotomy position. The bladder was emptied using a straight catheter and the speculum was placed in the vaginal vault and the anterior lip of the cervix was grasped using single-tooth tenaculum. The ParaGard IUD string the string was visible. The uterine manipulator was then placed and the tenaculum and speculum were removed. Attention was then turned to the abdomen where first a periumbilical incision was made using the skin knife and the Optiview trocar was inserted under direct visualization. After an adequate amount of abdominal insufflation, visualization of the pelvic organs found the uterus to be normal, both fallopian tubes appeared to be normal the left ovary was normal and the right ovary was enlarged and cystic. Next a suprapubic incision and a right lateral incision was made through which 5 mm trochars were placed in order to aid in manipulation of the pelvic organs. The tripolar cautery was used to excise the right ovarian cyst, the base of the cyst was cauterized providing good hemostasis. Copious amounts of irrigation was then performed, and the Tisseel sealant was sprayed over the right ovarian cystectomy site. At this point the procedure was considered complete. All instruments are removed from abdomen, and the abdomen was deflated. The periumbilical incision was closed using 0 Vicryl suture in a [id number] configuration on the fascia followed by 4 Monocryl suture in sub-cuticular fashion on the skin. The suprapubic and right lateral incisions were closed in similar fashion. Each incision was infiltrated using 0.5; solution. The uterine manipulator was removed, the patient tolerated the procedure well and was transported to the Recovery Room in stable condition.
[2019-03-11] MEDS ORDERED: ZOFRAN IV ONE (12:32)
[2019-03-11] MEDS: DILAUDID IV PRN ×3 (12:38→13:11)
[2019-03-11] MEDS ORDERED: NORCO 5/325 PO PRN (12:45)
[2019-03-11 15:16] VITALS: BP 110/56
== END 2019-03-11 15:20 | disposition home or self-care (01) ==
LOC: OR 08:06
PROVIDERS: ATTEND Obstetrics & Gynecology
DX: N83.201 Unspecified ovarian cyst, right side (principal); F17.210 Nicotine dependence, cigarettes, uncomplicated; G43.909 Migraine, unspecified, not intractable, without status migrainosus; I10 Essential (primary) hypertension; M19.90 Unspecified osteoarthritis, unspecified site; E66.9 Obesity, unspecified; K21.9 Gastro-esophageal reflux disease without esophagitis; Z68.43 Body mass index [BMI] 50.0-59.9, adult; Z98.891 History of uterine scar from previous surgery; Z88.6 Allergy status to analgesic agent; Z79.899 Other long term (current) drug therapy; Z86.718 Personal history of other venous thrombosis and embolism; Z87.442 Personal history of urinary calculi; Z98.890 Other specified postprocedural states; Z86.2 Personal history of diseases of the blood and blood-forming organs and certain disorders involving the immune mechanism
CPT/HCPCS: 36415; 58662; 81025; 85014; 85018; 88305; A4217; C9250; J1100; J1170; J1580; J1885; J2250; J2405; J2704; J3010; J7120

== ENCOUNTER 2019-04-09 07:46 | Emergency (ER) | payer OTHER ==
[2019-04-09 07:53] VITALS: BP 162/91
[2019-04-09 08:14] LABS: Basophils # (Auto) 0.1 K/mm3 (0.0-0.1); Basophils % (Auto) 1.2 % (0.0-1.8); Eosinophils # (Auto) 0.5 K/mm3 (0.0-0.4); Hematocrit 31.1 % (30.3-42.9); Hemoglobin 9.7 gm/dl (10.1-14.3); Lymphocytes # (Auto) 1.6 K/mm3 (1.2-5.4); Lymphocytes % (Auto) 15.1 % (13.4-35.0); Mean Corpuscular HGB Conc 31 % (30-34); Monocytes # (Auto) 0.9 K/mm3 (0.0-0.8); Monocytes % (Auto) 8.7 % (0.0-7.3); Platelet Count 330 K/mm3 (140-440); Red Blood Count 4.52 M/mm3 (3.65-5.03); Red Cell Distribution Width 18.4 % (13.2-15.2)
[2019-04-09 08:18] LABS: Mean Corpuscular Volume 69 fl (79-97)
[2019-04-09] MEDS ORDERED: NACL 0.9% 1000 ML 1,000 ML IV ONE (08:33)
[2019-04-09] MEDS ORDERED: ZOFRAN IV ONE (08:33)
[2019-04-09] MEDS ORDERED: MORPHINE IV ONE (08:33)
[2019-04-09 08:37] LABS: Bacteria,Urine 1+ /HPF (Negative); Bilirubin,Urine NEG (Negative); Blood,Urine LG (Negative); Color,Urine Yellow (Yellow); Mucus,Urine 1+ /HPF; Protein,Urine <15 mg/dL mg/dL (Negative); Urobilinogen,Urine < 2.0 mg/dL (<2.0)
[2019-04-09 08:38] LABS: RBC,Urine > 182.0 /HPF (0.0-6.0)
[2019-04-09 08:41] LABS: Alanine Aminotransferase 12 units/L (7-56); Albumin 3.8 g/dL (3.9-5); BUN/Creatinine Ratio 16; Blood Urea Nitrogen 13 mg/dL (7-17); Calcium 8.8 mg/dL (8.4-10.2); Hemolysis Index 22
--- NOTE | 2019-04-09 08:47 | Emergency Department Report ---
ED Female HPI - General Chief complaint: Vaginal Bleeding Stated complaint: ABD PAIN/BLEEDING Time Seen by Provider: 04/09/19 08:22 Source: patient Mode of arrival: Ambulatory Limitations: No Limitations - History of Present Illness Initial comments: 33-year-old female presents to ED with complaint of lower abdominal pain, vaginal bleeding 3 days. Patient underwent right ovarian cystectomy one month ago. Patient states pain is crampy in the lower abdomen, worse on the right side. States bleeding is light, brownish in color, with occasional clots. Denies fever. Reports nausea and vomiting. Reports last menstrual period was August 2018 because she has an IUD. Sent to ED by Dr Daryn COBB Complaint: vaginal bleeding, pelvic pain -: days(s) (3) Location: suprapubic Radiation: non-radiating Severity: moderate Quality: cramping Consistency: constant Improves with: none Worsens with: none Are you Now?: No Associated Symptoms: vaginal bleeding, abdominal pain, nausea/vomiting. denies: fever/chills - Related Data Home Medications Medication Instructions Recorded Confirmed Last Taken Lansoprazole [Prevacid] 15 mg PO QDAY 03/05/19 03/11/19 03/10/19 09:00 Previous Rx's Medication Instructions Recorded Last Taken Type HYDROcodone/APAP 5-325 [[place] 1 each PO Q6HR PRN #15 tablet 03/11/19 Unknown Rx 5/325] HYDROcodone/APAP 5-325 [[place] 1 each PO Q6HR PRN #10 tablet 04/09/19 Unknown Rx 5-325 mg TAB] Ondansetron [Zofran Odt] 4 mg PO Q8HR PRN #20 tab.rapdis 04/09/19 Unknown Rx Allergies Allergy/AdvReac Type Severity Reaction Status Date / Time amoxicillin [Amoxicillin] Allergy Vomiting Verified 03/05/19 12:50 ED Review of Systems ROS: Stated complaint: ABD PAIN/BLEEDING Other details as noted in HPI Comment: All other systems reviewed and negative Constitutional: denies: chills, fever Gastrointestinal: abdominal pain, nausea, vomiting Genitourinary: abnormal menses ED Past Medical Hx - Past Medical History Previous Medical History?: Yes Hx Hypertension: Yes Hx Heart Attack/AMI: No Hx Deep Vein Thrombosis: Yes Hx GERD: Yes Hx Liver Disease: No Hx Renal Disease: No Hx Arthritis: Yes (Left knee) Hx Headaches / Migraines: Yes (Migraines) Hx Seizures: No Hx Kidney Stones: Yes - Surgical History Past Surgical History?: Yes Additional Surgical History: c section x1 kidney surgery bladder surgery. Lap surgery for ovarian cysts. - Social History Smoking Status: Never Smoker Substance Use Type: None - Medications Home Medications: Home Medications Medication Instructions Recorded Confirmed Last Taken Type Lansoprazole [Prevacid] 15 mg PO QDAY 03/05/19 03/11/19 03/10/19 09:00 History HYDROcodone/APAP 5-325 [[place] 1 each PO Q6HR PRN #15 tablet 03/11/19 Unknown Rx 5/325] HYDROcodone/APAP 5-325 [[place] 1 each PO Q6HR PRN #10 tablet 04/09/19 Unknown Rx 5-325 mg TAB] Ondansetron [Zofran Odt] 4 mg PO Q8HR PRN #20 tab.rapdis 04/09/19 Unknown Rx ED Physical Exam - General Limitations: No Limitations General appearance: alert, in no apparent distress, obese - Head Head exam: Present: atraumatic, normocephalic - Eye Eye exam: Present: normal appearance - ENT ENT exam: Present: mucous membranes moist - Neck Neck exam: Present: normal inspection - Respiratory Respiratory exam: Present: normal lung sounds bilaterally. Absent: respiratory distress - Cardiovascular Cardiovascular Exam: Present: regular rate, normal rhythm - GI/Abdominal GI/Abdominal exam: Present: soft, tenderness (mild suprapubic, LLQ, tenderness; moderate RLQ tenderness). Absent: distended - Extremities Exam Extremities exam: Present: normal inspection - Neurological Exam Neurological exam: Present: alert, oriented X3 - Psychiatric Psychiatric exam: Present: normal affect, normal mood - Skin Skin exam: Present: warm, dry, intact, normal color ED Course Vital Signs 04/09/19 07:50 Temperature 98.2 F Pulse Rate 89 Respiratory 16 Rate Blood Pressure 162/91 O2 Sat by Pulse 99 Oximetry - Consultations Consultation #1: 04/09/19 12:24 Spoke w/ Dr Stearns. Informed of labs and US results. Pt to f/u in office. ED Medical Decision Making - Lab Data Result diagrams: 04/09/19 08:06 04/09/19 08:06 Critical care attestation.: If time is entered above; I have spent that time in minutes in the direct care of this critically ill patient, excluding procedure time. ED Disposition Clinical Impression: Acute abdominal pain Disposition: TO HOME OR SELFCARE Is pt being admited?: No Condition: Stable Instructions: Acute Abdominal Pain (ED) Prescriptions: HYDROcodone/APAP 5-325 [[place] 5-325 mg TAB] 1 each PO Q6HR PRN #10 tablet PRN Reason: pain Ondansetron [Zofran Odt] 4 mg PO Q8HR PRN #20 tab.rapdis PRN Reason: Vomiting Referrals: ARIANA STEARNS MD [Staff Physician] - 3-5 Days Time of Disposition: 12:28
--- NOTE | 2019-04-09 10:44 | Ultrasound Report ---
ULTRASOUND PELVIS DUPLEX DOPPLER COMPLETE ULTRASOUND TRANSVAGINAL HISTORY: Pain, bleeding, recent ovarian cyst surgery. COMPARISON: 05/07/18. TECHNIQUE: Transabdominal and transvaginal ultrasound with color and spectral doppler interrogation. FINDINGS: Uterus: The uterus is anteverted. The uterus measures 9.8 x 4.6 x 5.8 cm. No obvious uterine fibroids are identified cervix is unremarkable. Endometrium: 5 mm. There appears to be an intrauterine device within the endometrial canal. Right ovary: Not identified. Left ovary: 2.6 x 1.4 x 2.0 cm. No focal abnormality. No pelvic fluid or mass is identified. Spectral wave forms demonstrate arterial flow to the left ovary. IMPRESSION: Unremarkable transabdominal and transvaginal pelvic ultrasounds. An intrauterine device appears in good position. The right ovary is not visualized.
[2019-04-09] MEDS ORDERED: NORCO 5/325 PO ONE (12:26)
== END 2019-04-09 12:43 | disposition home or self-care (01) ==
LOC: ED 07:46
DX: R10.30 Lower abdominal pain, unspecified (principal); N93.9 Abnormal uterine and vaginal bleeding, unspecified; I10 Essential (primary) hypertension; M17.12 Unilateral primary osteoarthritis, left knee; G43.909 Migraine, unspecified, not intractable, without status migrainosus; Z86.718 Personal history of other venous thrombosis and embolism; Z87.442 Personal history of urinary calculi; Z88.1 Allergy status to other antibiotic agents
CPT/HCPCS: 36415; 76830; 80053; 81001; 83690; 84703; 85025; 87086; 87210; 87591; 93975; 96361; 96374; 96375; 99285; J2270; J2405; J7030

== ENCOUNTER 2019-05-21 16:15 | Emergency (ER) | payer OTHER ==
--- NOTE | 2019-05-21 16:52 | Emergency Department Report ---
Blank Doc - Documentation Documentation: This is a 33-year-old female that presents with pelvic pain. This initial assessment/diagnostic orders/clinical plan/treatment(s) is/are subject to change based on patient's health status, clinical progression and re- assessment by fellow clinical providers in the ED. Further treatment and workup at subsequent clinical providers discretion. Patient/guardians urged not to elope from the ED as their condition may be serious if not clinically assessed and managed. Initial orders include: 1- Patient sent to [facility] for further evaluation and treatment 2- UA
[2019-05-21 17:42] LABS: Bilirubin,Urine NEG (Negative); Blood,Urine MOD (Negative); Color,Urine Yellow (Yellow); Mucus,Urine FEW /HPF; Protein,Urine <15 mg/dL mg/dL (Negative); Urobilinogen,Urine < 2.0 mg/dL (<2.0)
[2019-05-21 17:44] LABS: HCG Qualitative,Urine Negative (Negative)
[2019-05-21] MEDS ORDERED: ZOFRAN IV ONE (19:29)
[2019-05-21] MEDS ORDERED: NACL 0.9% 1000 ML 1,000 ML IV ONE (19:29)
[2019-05-21] MEDS ORDERED: MORPHINE IV ONE (19:29)
[2019-05-21 20:20] LABS: Basophils # (Auto) 0.1 K/mm3 (0.0-0.1); Basophils % (Auto) 1.3 % (0.0-1.8); Eosinophils # (Auto) 0.7 K/mm3 (0.0-0.4); Hematocrit 32.4 % (30.3-42.9); Hemoglobin 9.7 gm/dl (10.1-14.3); Lymphocytes # (Auto) 2.2 K/mm3 (1.2-5.4); Lymphocytes % (Auto) 19.9 % (13.4-35.0); Mean Corpuscular HGB Conc 30 % (30-34); Mean Corpuscular Volume 71 fl (79-97); Monocytes % (Auto) 8.6 % (0.0-7.3); Platelet Count 287 K/mm3 (140-440); Red Blood Count 4.55 M/mm3 (3.65-5.03); Red Cell Distribution Width 18.5 % (13.2-15.2)
[2019-05-21 20:41] LABS: Alanine Aminotransferase 9 units/L (7-56); Albumin 3.8 g/dL (3.9-5); BUN/Creatinine Ratio 20; Blood Urea Nitrogen 10 mg/dL (7-17); Hemolysis Index 3
--- NOTE | 2019-05-21 22:03 | Cat Scan Report ---
CT abdomen pelvis w con INDICATION: abdominal pain, lower. TECHNIQUE: All CT scans at this location are performed using the following dose modulation technique: Automated exposure control. CONTRAST: Omnipaque 300, 100 cc IV injection. COMPARISON: CT abdomen and pelvis 11/27/2014. CT abdomen: The parenchymal organs are unremarkable in appearance other than small nonobstructing rig ht renal stones. Negative for dominant mass, fluid collection or inflammation. The bowel is not dilat ed or thickened. Gallstones are noted. CT PELVIS: Negative for pelvic mass, fluid collection or inflammation. The uterus contains an IUD. A left ovarian cyst measures 3.5 cm. IMPRESSION: 1. Calcified gallstones. 2. 3.5 cm physiologic cyst left ovary. 3. Small nonobstructing right renal stones. Signer Name: Kenny Mcrae MD Signed: 05/21/2019 9:58 PM Workstation Name: [id number]
--- NOTE | 2019-05-21 22:23 | Emergency Department Report ---
ED Abdominal Pain HPI - General Chief Complaint: Abdominal Pain Stated Complaint: SENT BY DR/SEVERE CRAMPS/FEVER/HIGH BP Time Seen by Provider: 05/21/19 16:50 Source: patient Mode of arrival: Ambulatory Limitations: No Limitations - History of Present Illness Initial Comments: Patient is a 33-year-old white female with a history of recurrent ovarian cysts and is status post right ovarian cyst laparoscopic surgery a month ago, and who presents to ED complaint of acute onset of severe diffuse lower abdominal pain with nausea and subjective fever for the last 2 days, worse in the last 2 months. Patient states that she was sent to the ED for evaluation by her [employer]MENT [employer]PA[employer] physician for further evaluation. Patient denies dizziness, dysuria, chest pain, shortness of breath, vomiting, diarrhea, vaginal bleeding, low back pain, headache or vaginal discharge and dyspareunia. MD Complaint: abdominal pain, other (Pelvic pain) -: Sudden, days(s) (2) Location: LLQ, RLQ, suprapubic Radiation: none Migration to: no migration Severity scale (0 -10): 5 Quality: cramping, aching, sharp Consistency: constant Improves With: nothing Worsens With: nothing Associated Symptoms: denies other symptoms, nausea, fever. denies: vomiting, diarrhea, chills, dysuria, hematemesis, hematochezia, melena, anorexia, syncope - Related Data LMP (females 10-50): last week Home Medications Medication Instructions Recorded Confirmed Last Taken Lansoprazole [Prevacid] 15 mg PO QDAY 03/05/19 03/11/19 03/10/19 09:00 Previous Rx's Medication Instructions Recorded Last Taken Type HYDROcodone/APAP 5-325 [[place] 1 each PO Q6HR PRN #15 tablet 03/11/19 Unknown Rx 5/325] HYDROcodone/APAP 5-325 [[place] 1 each PO Q6HR PRN #10 tablet 05/21/19 Unknown Rx 5-325 mg TAB] Ketorolac [Toradol] 10 mg PO Q8H PRN #20 tablet 05/21/19 Unknown Rx Ondansetron [Zofran ODT TAB] 4 mg PO Q8HR PRN #20 tab.rapdis 05/21/19 Unknown Rx Allergies Allergy/AdvReac Type Severity Reaction Status Date / Time amoxicillin [Amoxicillin] Allergy Vomiting Verified 03/05/19 12:50 ED Review of Systems ROS: Stated complaint: SENT BY DR/SEVERE CRAMPS/FEVER/HIGH BP Other details as noted in HPI Constitutional: denies: chills, fever Eyes: denies: eye pain, eye discharge, vision change ENT: denies: ear pain, throat pain Respiratory: denies: cough, shortness of breath, wheezing Cardiovascular: denies: chest pain, palpitations Endocrine: no symptoms reported Gastrointestinal: abdominal pain, nausea. denies: diarrhea Genitourinary: denies: urgency, dysuria, discharge Musculoskeletal: denies: back pain, joint swelling, arthralgia Skin: denies: rash, lesions Neurological: denies: headache, weakness, paresthesias Psychiatric: denies: anxiety, depression Hematological/Lymphatic: denies: easy bleeding, easy bruising ED Past Medical Hx - Past Medical History Hx Hypertension: Yes Hx Heart Attack/AMI: No Hx Deep Vein Thrombosis: Yes Hx GERD: Yes Hx Liver Disease: No Hx Renal Disease: No Hx Arthritis: Yes (Left knee) Hx Headaches / Migraines: Yes (Migraines) Hx Seizures: No Hx Kidney Stones: Yes Additional medical history: right LL vein stripping - Surgical History Past Surgical History?: Yes Additional Surgical History: c section x1 kidney surgery bladder surgery. Lap surgery for ovarian cysts. - Social History Smoking Status: Current Every Day Smoker Substance Use Type: None - Medications Home Medications: Home Medications Medication Instructions Recorded Confirmed Last Taken Type Lansoprazole [Prevacid] 15 mg PO QDAY 03/05/19 03/11/19 03/10/19 09:00 History HYDROcodone/APAP 5-325 [[place] 1 each PO Q6HR PRN #15 tablet 03/11/19 Unknown Rx 5/325] HYDROcodone/APAP 5-325 [[place] 1 each PO Q6HR PRN #10 tablet 05/21/19 Unknown Rx 5-325 mg TAB] Ketorolac [Toradol] 10 mg PO Q8H PRN #20 tablet 05/21/19 Unknown Rx Ondansetron [Zofran ODT TAB] 4 mg PO Q8HR PRN #20 tab.rapdis 05/21/19 Unknown Rx ED Physical Exam - General Limitations: No Limitations General appearance: alert, in no apparent distress - Head Head exam: Present: atraumatic, normocephalic, normal inspection - Eye Eye exam: Present: normal appearance, PERRL, EOMI. Absent: scleral icterus, conjunctival injection, nystagmus, periorbital swelling, other Pupils: Present: normal accommodation - ENT ENT exam: Present: normal exam, normal orophraynx, mucous membranes moist, TM's normal bilaterally, normal external ear exam - Neck Neck exam: Present: normal inspection, full ROM. Absent: tenderness - Respiratory Respiratory exam: Present: normal lung sounds bilaterally. Absent: respiratory distress, wheezes, rales, stridor, chest wall tenderness, decreased breath sounds, prolonged expiratory - Cardiovascular Cardiovascular Exam: Present: normal rhythm, tachycardia, normal heart sounds. Absent: systolic murmur, diastolic murmur, rubs, gallop - GI/Abdominal GI/Abdominal exam: Present: soft, tenderness (suprapubic pain), normal bowel demetri nds. Absent: guarding, rebound, hyperactive bowel sounds, hypoactive bowel sounds, organomegaly, pulsatile mass - Rectal Rectal exam: Present: deferred - Extremities Exam Extremities exam: Present: normal inspection, full ROM, normal capillary refill - Back Exam Back exam: Present: normal inspection, full ROM. Absent: tenderness, CVA tenderness (R), CVA tenderness (L), muscle spasm, paraspinal tenderness, vertebral tenderness - Neurological Exam Neurological exam: Present: alert, oriented X3, CN II-XII intact, normal gait, reflexes normal - Psychiatric Psychiatric exam: Present: normal affect, normal mood - Skin Skin exam: Present: warm, dry, intact, normal color. Absent: rash ED Course Vital Signs 05/21/19 05/21/19 16:49 18:07 Temperature 98.0 F 98.4 F Pulse Rate 112 H 102 H Respiratory 18 13 Rate Blood Pressure 174/109 Blood Pressure 148/93 [Right] O2 Sat by Pulse 100 97 Oximetry - Reevaluation(s) Reevaluation #1: 05/21/19 22:31 This is a 33-year-old white female who presented to the ED with diffuse lower abdominal pain. Patient is a history of recurrent ovarian cysts and is status post right ovarian cyst surgery 1 month ago. In the ED, patient is alert and oriented 3 but appears to be in pain, and is tachycardic and hypertensive. Lab test results were reviewed and are remarkable for mild leukocytosis of 11,200. Patient was treated for pain in the ED and on reevaluation, patient's pain is well controlled with medications. The rest of the laboratory results include a urinalysis is unremarkable. Abdomen pelvis CT scan with contrast shows calcified gallstones, a 3.5 cm physiologic cyst left ovary and a small nonobstructing right renal stones. ED Medical Decision Making - Lab Data Result diagrams: 05/21/19 20:01 05/21/19 20:01 - Radiology Data Radiology results: report reviewed, image reviewed Findings [facility] [address] [place] [address] Cat Scan Report Signed Patient: DAYNA MENA MR#: [id number] : 1985 Acct:[id number] Age/Sex: 33 / F ADM Date: 05/21/19 Loc: ED Attending Dr: Ordering Physician: JAELN DISLA Date of Service: 05/21/19 Procedure(s): CT abdomen pelvis w con Accession Number(s): [id number] cc: JALEN DISLA CT abdomen pelvis w con INDICATION: abdominal pain, lower. TECHNIQUE: All CT scans at this location are performed using the following dose modulation technique: Automated exposure control. CONTRAST: Omnipaque 300, 100 cc IV injection. COMPARISON: CT abdomen and pelvis 11/27/2014. CT abdomen: The parenchymal organs are unremarkable in appearance other than small nonobstructing right renal stones. Negative for dominant mass, fluid collection or inflammation. The bowel is not dilated or thickened. Gallstones are noted. CT PELVIS: Negative for pelvic mass, fluid collection or inflammation. The uterus contains an IUD. A left ovarian cyst measures 3.5 cm. IMPRESSION: 1. Calcified gallstones. 2. 3.5 cm physiologic cyst left ovary. 3. Small nonobstructing right renal stones. Signer Name: Kenny Mcrae MD Signed: 05/21/2019 9:58 PM Workstation Name: [id number] Transcribed By: ES Dictated By: Kenny Mcrae MD Electronically Authenticated By: Kenny Mcrae MD Signed Date/Time: 05/21/19 2158 - Medical Decision Making This is a 33-year-old white female who presented to the ED with diffuse lower abdominal pain. Patient is a history of recurrent ovarian cysts and is status post right ovarian cyst surgery 1 month ago. In the ED, patient is alert and oriented 3 but appears to be in pain, and is tachycardic and hypertensive. Lab test results were reviewed and are remarkable for mild leukocytosis of 11,200. Patient was treated for pain in the ED and on reevaluation, patient's pain is well controlled with medications. The vital signs improved significantly and tachycardia resolved. The rest of the laboratory results include a urinalysis is unremarkable. Abdomen pelvis CT scan with contrast shows calcified gallstones, a 3.5 cm physiologic cyst left ovary and a small nonobstructing right renal stones. - Differential Diagnosis Abdominal pain; Kidney stones; Ovarian cysts, Gallstones Critical care attestation.: If time is entered above; I have spent that time in minutes in the direct care of this critically ill patient, excluding procedure time. ED Disposition Clinical Impression: Left ovarian cyst, Kidney stone on right side, Gallstones Disposition: TO HOME OR SELFCARE Is pt being admited?: No Does the pt Need Aspirin: No Condition: Stable Instructions: Abdominal Pain (ED), Kidney Stones (ED), Ovarian Cyst (ED) Additional Instructions: Take medications with food, drink plenty of fluids and follow-up with the [employer] physician in 5-7 days for reevaluation. Return to the ED immediately if symptoms get worse. Prescriptions: HYDROcodone/APAP 5-325 [[place] 5-325 mg TAB] 1 each PO Q6HR PRN #10 tablet PRN Reason: pain Ketorolac [Toradol] 10 mg PO Q8H PRN #20 tablet PRN Reason: Pain Ondansetron [Zofran ODT TAB] 4 mg PO Q8HR PRN #20 tab.rapdis PRN Reason: Vomiting Referrals: [facility] [Outside] - 3-5 Days Time of Disposition: 22:35 Print Language: WELSH
[2019-05-21 22:29] VITALS: BP 136/86
== END 2019-05-21 23:06 | disposition home or self-care (01) ==
LOC: ED 16:15
DX: N83.202 Unspecified ovarian cyst, left side (principal); N20.0 Calculus of kidney; K80.80 Other cholelithiasis without obstruction; I10 Essential (primary) hypertension; K21.9 Gastro-esophageal reflux disease without esophagitis; G43.909 Migraine, unspecified, not intractable, without status migrainosus; F17.200 Nicotine dependence, unspecified, uncomplicated
CPT/HCPCS: 36415; 74177; 80053; 81001; 81025; 83690; 84703; 85025; 96374; 96375; 99284; J2270; J2405; J7030; Q9967

== ENCOUNTER 2019-07-01 13:41 | Emergency (ER) | payer SELFPAY ==
[2019-07-01 14:47] VITALS: BP 135/84
[2019-07-01 15:03] LABS: Basophils # (Auto) 0.1 K/mm3 (0.0-0.1); Basophils % (Auto) 1.1 % (0.0-1.8); Eosinophils # (Auto) 0.5 K/mm3 (0.0-0.4); Eosinophils % (Auto) 5.9 % (0.0-4.3); Hematocrit 30.9 % (30.3-42.9); Hemoglobin 9.5 gm/dl (10.1-14.3); Lymphocytes # (Auto) 1.9 K/mm3 (1.2-5.4); Lymphocytes % (Auto) 20.8 % (13.4-35.0); Mean Corpuscular HGB Conc 31 % (30-34); Mean Corpuscular Volume 71 fl (79-97); Monocytes # (Auto) 0.5 K/mm3 (0.0-0.8); Monocytes % (Auto) 5.9 % (0.0-7.3); Platelet Count 315 K/mm3 (140-440); Red Blood Count 4.37 M/mm3 (3.65-5.03); Red Cell Distribution Width 16.6 % (13.2-15.2)
[2019-07-01 15:16] LABS: Color,Urine Yellow (Yellow)
[2019-07-01 15:17] LABS: Bilirubin,Urine NEG (Negative); Blood,Urine LG (Negative); Mucus,Urine FEW /HPF; Protein,Urine <15 mg/dL mg/dL (Negative); RBC,Urine > 182.0 /HPF (0.0-6.0); Urobilinogen,Urine < 2.0 mg/dL (<2.0)
--- NOTE | 2019-07-01 16:50 | Emergency Department Report ---
HPI - General Chief Complaint: Vaginal Bleeding Time Seen by Provider: 07/01/19 16:44 ED Past Medical Hx - Past Medical History Hx Hypertension: Yes Hx Heart Attack/AMI: No Hx Deep Vein Thrombosis: Yes Hx GERD: Yes Hx Liver Disease: No Hx Renal Disease: No Hx Arthritis: Yes (Left knee) Hx Headaches / Migraines: Yes (Migraines) Hx Seizures: No Hx Kidney Stones: Yes Additional medical history: right LL vein stripping - Surgical History Additional Surgical History: c section x1 kidney surgery bladder surgery. Lap surgery for ovarian cysts. - Social History Smoking Status: Never Smoker Substance Use Type: None - Medications Home Medications: Home Medications Medication Instructions Recorded Confirmed Last Taken Type Lansoprazole [Prevacid] 15 mg PO QDAY 03/05/19 03/11/19 03/10/19 09:00 History HYDROcodone/APAP 5-325 [[place] 1 each PO Q6HR PRN #15 tablet 03/11/19 Unknown Rx 5/325] HYDROcodone/APAP 5-325 [[place] 1 each PO Q6HR PRN #10 tablet 05/21/19 Unknown Rx 5-325 mg TAB] Ketorolac [Toradol] 10 mg PO Q8H PRN #20 tablet 05/21/19 Unknown Rx Ondansetron [Zofran ODT TAB] 4 mg PO Q8HR PRN #20 tab.rapdis 05/21/19 Unknown Rx ED Review of Systems ROS: Stated complaint: DOC SENT/BLEEDING/PAIN Other details as noted in HPI Comment: All other systems reviewed and negative Physical Exam - Physical Exam Vital Signs: Vital Signs 07/01/19 13:58 Temperature 97.9 F Pulse Rate 104 H Respiratory 20 Rate Blood Pressure 135/84 [Left] O2 Sat by Pulse 96 Oximetry ED Course Vital Signs 07/01/19 13:58 Temperature 97.9 F Pulse Rate 104 H Respiratory 20 Rate Blood Pressure 135/84 [Left] O2 Sat by Pulse 96 Oximetry ED Medical Decision Making - Lab Data Result diagrams: 07/01/19 14:21 - Radiology Data Radiology results: report reviewed, image reviewed - Medical Decision Making Labs 07/01/19 07/01/19 07/01/19 14:21 14:21 14:21 WBC 9.2 RBC 4.37 Hgb 9.5 L Hct 30.9 MCV 71 L MCH 22 L MCHC 31 RDW 16.6 H Plt Count 315 Lymph % (Auto) 20.8 [place] % (Auto) 5.9 Eos % (Auto) 5.9 H Baso % (Auto) 1.1 Lymph # 1.9 [place] # 0.5 Eos # 0.5 H Baso # 0.1 Seg Neutrophils % 66.3 Seg Neutrophils # 6.1 HCG, Qual Negative HCG, Quant < 2 Urine Color Urine Turbidity Urine pH Ur Specific [place] Urine Protein Urine Glucose (UA) Urine Ketones Urine Blood Urine Nitrite Urine Bilirubin Urine Urobilinogen Ur Leukocyte Esterase Urine WBC (Auto) Urine RBC (Auto) U Epithel Cells (Auto) Urine Mucus Urine Yeast (Budding) Blood Type 07/01/19 07/01/19 14:21 14:38 WBC RBC Hgb Hct MCV MCH MCHC RDW Plt Count Lymph % (Auto) [place] % (Auto) Eos % (Auto) Baso % (Auto) Lymph # [place] # Eos # Baso # Seg Neutrophils % Seg Neutrophils # HCG, Qual HCG, Quant Urine Color Yellow Urine Turbidity Slightly-cloudy Urine pH 6.0 Ur Specific [place] 1.013 Urine Protein <15 mg/dl Urine Glucose (UA) Neg Urine Ketones Neg Urine Blood Lg Urine Nitrite Neg Urine Bilirubin Neg Urine Urobilinogen < 2.0 Ur Leukocyte Esterase Neg Urine WBC (Auto) 2.0 Urine RBC (Auto) > 182.0 U Epithel Cells (Auto) 5.0 Urine Mucus Few Urine Yeast (Budding) 1+ Blood Type O POSITIVE Vital Signs 07/01/19 13:58 Temperature 97.9 F Pulse Rate 104 H Respiratory 20 Rate Blood Pressure 135/84 [Left] O2 Sat by Pulse 96 Oximetry US NOTED Critical care attestation.: If time is entered above; I have spent that time in minutes in the direct care of this critically ill patient, excluding procedure time. ED Disposition Clinical Impression: DUB (dysfunctional uterine bleeding) Disposition: DC-01 TO HOME OR SELFCARE Is pt being admited?: No Does the pt Need Aspirin: No Condition: Stable Instructions: Dysfunctional Uterine Bleeding (ED) Additional Instructions: FOLLOW UP WITH OBGYN REGARDING YOUR VAGINAL BLEEDING LET THEM KNOW YOU WERE SEEN HERE AND THEY CAN ACCESS YOUR TESTS Referrals: DANIEL BROWER MD [Staff Physician] - 3-5 Days Time of Disposition: 18:30
--- NOTE | 2019-07-01 18:51 | Ultrasound Report ---
CLINICAL DATA: PELVIC PAIN TECHNICAL DATA: Ultrasound, pelvic (nonobstetric), real-time with image documentation; transabdominal and transvagina l imaging with Doppler was performed. Doppler imaging demonstrates normal arterial and venous flow. FINDINGS: The uterus is of normal size and echogenicity. IUD is in place with a somewhat peculiar configuration . Recommend clinical correlation The right ovary cannot be visualized. The left ovary is symmetric size and echogenicity. 2.25 cyst l eft ovary. There are no ovarian or adnexal masses. Normal color-flow left ovary. There is no significant quantity of free fluid dependently within the pelvis. IMPRESSION: IUD in place. Please see above comments WOMEN OF REPRODUCTIVE AGE: 1. Cysts 3 cm: Normal physiologic findings; at the discretion of the interpreting physician whether o r not to describe them in the imaging report; do not need follow-up. 2. Cysts >3 and 5 cm: Should be described in the imaging report with a statement that they are almost certainly benign; do not need follow-up. 3. Cysts >5 and 7 cm: Should be described in the imaging report with a statement that they are almost certainly benign; yearly follow-up with US recommended. 4. Cysts >7 cm: Since these may be difficult to assess completely with US, further imaging with magne tic resonance (MR) or surgical evaluation should be considered. POSTMENOPAUSAL WOMEN: 1. Cysts 1 cm: Are clinically inconsequential; at the discretion of the interpreting physician whethe r or not to describe them in the imaging report; do not need follow-up. 2. Cysts >1 and 7 cm: Should be described in the imaging report with statement that they are almost c ertainly benign; yearly follow-up, at least initially, with US recommended. Some practices may opt to increase the lower size threshold for follow-up from 1 cm to as high as 3 cm. One may opt to continu e follow-up annually or to decrease the frequency of follow-up once stability or decrease in size has been confirmed. Cysts in the larger end of this range should still generally be followed on a regula r basis. 3. Cysts >7 cm: Since these may be difficult to assess completely with US, further imaging with MR or surgical evaluation should be considered.. Signer Name: Nhan Mendez MD Signed: 07/01/2019 6:46 PM Workstation Name: [id number]
== END 2019-07-01 19:48 | disposition home or self-care (01) ==
LOC: ED 13:41
DX: N93.8 Other specified abnormal uterine and vaginal bleeding (principal); I10 Essential (primary) hypertension; K21.9 Gastro-esophageal reflux disease without esophagitis; M19.90 Unspecified osteoarthritis, unspecified site; G43.909 Migraine, unspecified, not intractable, without status migrainosus; Z86.718 Personal history of other venous thrombosis and embolism; Z87.442 Personal history of urinary calculi; Z98.890 Other specified postprocedural states; Z79.899 Other long term (current) drug therapy; Z88.1 Allergy status to other antibiotic agents
CPT/HCPCS: 36415; 76830; 76856; 81001; 84702; 84703; 85025; 86900; 86901